=== PATIENT | male | born 2005 | race Caucasian/White ===

== ENCOUNTER 2025-02-12 13:51 | Emergency (ER) | payer BC, OTHER, SELFPAY ==
[2025-02-12 13:53] VITALS: BP 143/83; PULSE 119; RESP 24; TEMP 36.7; O2SAT 99; BMI 21.4
--- NOTE | 2025-02-12 14:13 | EDS_ITS ---
HPI History of Present Illness Chief Complaint: Anxiety Detail of Chief Complaint: Panic attack Informant: patient Onset/Context/Timing Onset: Today and Hours Context: Gradual Onset Timing: Continuous Current Severity: Moderate Maximum Severity: Severe Narrative Narrative: 19-year-old male history of anxiety and panic attacks. OCD. He is from out of town and is from [place]. He is doing seals here. Just started having anxiety and a panic attack today. Denies any other complaints. He has had these in the past. He was taking Prozac which helped him but has been off of it and has had a panic attack for last 2 years. Denies any other significant medical problems. Prior similar symptoms: Yes Recent Illness/Hospitalization: No PFSH PFS Medical History Anxiety Home Medications ?Medication ?Instructions ?Recorded ?Last Taken ?Type lorazepam 1 mg tablet (Ativan) 1 mg PO DAILY PRN anxie ty 5 days 02/12/25 Unknown Rx #5 tabs Allergy/AdvReac Type Severity Reaction Status Date / Time No Known Allergies Allergy Verified 02/12/25 13:53 Social History Smoking Status: Current every day smoker tobacco type: e-cigarettes ROS ROS ED ROS Narrative Denies recent illness. Constitutional Constitutional ED: Denies chills Eyes Eyes: Denies blurry vision ENT ENT ED: Denies ear pain or rhinorrhea Cardiovascular Cardiovascular: Denies chest pain or palpitations Respiratory/Chest Respiratory/Chest: Denies cough or dyspnea Gastrointestinal Gastrointestinal: Denies abdominal pain, diarrhea, nausea or vomiting Genitourinary Genitourinary ED: Denies hematuria Musculoskeletal Musculoskeletal: Denies arthralgias Integumentary Denies abscess Neurologic Neurologic: Denies headache(s) Psychiatric Psychiatric: Reports anxiety Endocrine Endocrinology: Denies cold intolerance Hematologic/Lymphatic Hematologic/Lymphatic: Reports none Allergic/Immunologic Allergic/Immunologic ED: Denies mouth swelling, tongue swelling or urticaria EXAM Physical Exam Narrative Exam Narrative: 19-year-old male very anxious. Emotionally upset. Vital signs are stable and afebrile. Lying in bed stable otherwise. H EENT exam pupils round react light. Extra motions are intact. Moist mucous membranes. Neck nontender. Lungs are clear equal symmetrical. Heart tachycardic 115 no murmur. Chest wall ribs nontender. Abdomen soft nontender. Moving all 4 extremities. Nontender no edema. Normal motor strength. Normal range of motion. Back nontender. Neurologically is awake alert. Answer questions following commands. No focal motor deficits. Patient is very emotionally upset tearful. Anxious. Rapid speech. Const Vital Signs: 02/12/25 13:53 Temperature 98.0 F Temperature Source Oral Pulse Rate 119 H Respiratory Rate 24 H Blood Pressure 143/83 H Blood Pressure Mean 103 Pulse Ox 99 Oxygen Delivery Method Room Air Positive well nourished and well developed; Negative for obese, cachectic, contractures or unkempt General Appearance ED: well developed and NAD; Negative for unkempt, cachectic, contractures, cyanotic, diaphoretic or pallor Nutritional Appearance: Negative for cachectic or obese HEENT Reports moist mucous membranes Negative for trauma or tenderness Eyes PERRL and EOMs intact bilaterally Neck no lymphadenopathy, supple and no JVD Chest Wall inspection of chest normal and palpation of chest normal Resp normal respiratory effort and clear to auscultation bilaterally Effort and Inspection: Negative for retractions Auscultation: Negative for rales, rhonchi or wheezes Cardio regular rhythm, S1 normal heart sound, S2 normal heart sound and no murmurs; Negative for regular rate Rate: tachycardic Rhythm: Negative for abnormal rhythm GI normal to inspection, nondistended, normoactive bowel sounds, non-tender and non-distended Palpation: soft; Negative for tender, guarding or rebound tenderness present Back/Spine no CVA tenderness General Back: Negative for CVA tenderness Cervical Spine: Negative for cervical spine tenderness Thoracic Spine / Upper Back: Negative for thoracic spinal tenderness or paraspinal muscle tenderness Lumbar Spine / Lower Back: Negative for lumbar spinal tenderness Extremity normal to inspection General Extremety ED: Negative for edema or tenderness General Extremity: Negative for edema Neuro oriented x3 and CN's II-XII intact bilaterally Sensorium / Orientation: alert; Negative for orientation impaired, lethargic or stuporous Motor Exam: strength 5/5 throughout; Negative for general weakness or strength abnormal Psych mental status grossly normal Appearance: Negative for unkempt Attitude: No agitated Mood & Affect: anxious and tearful; Negative for depressed Skin no rashes or lesions noted, no wounds and skin turgor normal General Skin Exam: Negative for jaundice or pallor Lesions: No lesion noted Rashes: No rashes noted Trauma: Negative for abrasion Wounds: Negative for wounds noted MDM MDM MDM Narrative Medical decision making narrative: 19-year-old male very anxious. With panic attack. Exam otherwise is unremarkable. Treated p.o. Ativan and reassessed. I do not think he needs any labs or imaging. Repeat exam around 3:43 PM. Patient is doing much better. He feels comfortable being discharged home. Patient looks much better now. Calm and relaxed. He will be written for a small prescription of Ativan 5, 1 mg tablets to use as needed. He will follow-up with your counseling center for when he returns to [place] counseling there. History & Record Review Discussion w/independent historian: Patient Additional record(s) reviewed:: No prior records Discharge Plan Triage Chief Complaint: Anxiety ED Provider: Nestor Potter Dx/Rx/DC Orders Clinical Impression: Panic attack, Anxiety Instructions: ED Panic Attack Prescriptions: New lorazepam [Ativan] 1 mg tablet 1 mg PO DAILY PRN (Reason: anxiety) 5 Days Qty: 5 0RF Primary Care Provider: FAY GROSS MD Referrals: Counseling,Center [Group of Physicians] - As soon as possible [facility] Doctor,Out of [Non-Staff] - Activity Restrictions/Additional Instructions: Educate yourself about anxiety and ways to combat it. Read up on it. Meditation. Exercise. Walks. Medication if need be. Counseling. I referred you to our local counseling center obviously can follow-up with people in [place] when you return home. I wrote you a small prescription of Ativan that is what we gave you today. You are having a significant anxiety reaction or feel very anxious you can use 1 at a time. If you do not need it you do not need to take it at all. Follow-up with somebody when you get back home. Return to the emergency department if you are feeling worse. Print Language: Ghanaian Disposition Disposition: Home, Self Care
[2025-02-12] MEDS: LORazepam 1 MG Tablet PO (14:20)
[2025-02-12 15:50] VITALS: BP 109/65; PULSE 81; RESP 20; TEMP 36.6; O2SAT 99
== END 2025-02-12 15:54 | disposition home or self-care (01) ==
PROVIDERS: Emergency Provider Emergency Medicine; Visit Provider Emergency Medicine
DX: F41.0 Panic disorder [episodic paroxysmal anxiety] (principal); F42.9 Obsessive-compulsive disorder, unspecified; F17.290 Nicotine dependence, other tobacco product, uncomplicated; Z79.899 Other long term (current) drug therapy
CPT/HCPCS: 99284